=== PATIENT | female | born 1980 | race Caucasian/White ===

== ENCOUNTER 2017-03-22 07:50 | Inpatient (IN) ==
[2017-03-22] MEDS ORDERED: CITRIC ACID/SODIUM CITRATE 30ml PO ONE (08:11)
[2017-03-22] MEDS ORDERED: CEFAZOLIN PREMIX (MC ONLY) 2 GM/50 ML BAG IV ONE (08:11)
[2017-03-22] MEDS ORDERED: FAMOTIDINE PB 20 MG/50 ML BAG IV ONE (08:11)
[2017-03-22] MEDS: LR 1,000 ML IV SCH ×4 (08:44→11:24)
[2017-03-22] MEDS: NOZIN NASAL SWAB NAS SCH ×2 (08:46→16:52)
--- NOTE | 2017-03-22 09:19 | Anesthesia Preoperative Report ---
Anesthesia Preoperative Record - Date and Time Date: 03/22/17 Preoperative Diagnosis: , water broke Proposed Procedure: emergency csection NPO Since Date: 03/21/17 NPO Since Time: 23:00 Allergies/Adverse Reactions: Allergies Allergy/AdvReac Type Severity Reaction Status Date / Time No Known Allergies Allergy Verified 03/22/17 08:10 - Vital Signs Vital Signs: Temperature 97.6 F 03/22/17 08:55 Pulse Rate 102 H 03/22/17 08:55 Respiratory Rate 20 03/22/17 08:55 Blood Pressure 114/74 03/22/17 08:55 Pulse Oximetry 99 03/22/17 08:55 Height and Weight: Height 1.65 m Weight 82.1 kg - Medications Inpatient Medications: Current Medications Lactated Ringer's (Lactated Ringers) 1,000 mls @ 999 mls/hr IV .Q1H1M [facility] Last Admin: 03/22/17 08:44 Dose: 999 mls/hr Isopropyl Alcohol (Nozin Nasal Swab) 1 each RIO 0600,1400,2200 [facility] Last Admin: 03/22/17 08:46 Dose: 1 each Home Medications: Home Medications Medication Instructions Recorded Confirmed Type Docosahexanoic Acid [ Dha] 1 cap PO DAILY #0 cap 01/08/15 History Miralax 03/15/17 History Tylenol 03/15/17 History - Medical History Neuro/Musculoskeletal: Reports: Depression, Seizures (zero in 8 yrs, may have been anxiety attacks ) Other History: Reports: Now - Surgical History Reproductive Surgery/Treatment: DENIES: Section Anesthesia Reactions: None Hx Family Anesthesia Reaction: No - Social History Smoking Status: Never smoker Substance Use Type: does not use Alcohol Intake Frequency: does not drink - Pertinent Findings Laboratory: CBC and BMP 03/22/17 08:35 - Physical Exam Respiratory Exam: Present: lungs clear, bilateral breath sounds equal Cardiovascular Exam: Present: regular rate and rhythm, no murmur - Airway Assessment Mallampati Score: III TMD: 3 Fingerbreadths Neck Extension: good Overall Assessment: may be difficult intubation - ASA ASA Score: 2, E - Discussion Discussion: Discussed risks/options/alternatives of anesthesia and questions answered. Patient consents. Nursing pain assessment noted. Attestation Statement: Prior to the delivery of any anesthetic medication, I examined the patient, developed the plan, obtained the patient's consent and discussed the risk and benefits of the procedure with the patient/guardian.
[2017-03-22] MEDS ORDERED: MORPHINE SULFATE PF 5mg/10ml INJ (Duramorph) ONE (09:23)
[2017-03-22] MEDS ORDERED: FentaNYL 100 MCG/2 ML INJECTION ONE (09:23)
[2017-03-22] MEDS ORDERED: EPHEDRINE 50mg/ml INJECTION ONE ×2 (09:24→09:25)
[2017-03-22] MEDS ORDERED: ONDANSETRON 4 MG/2 ML INJECTION ONE (10:11)
[2017-03-22] MEDS: OXYTOCIN BOLUS BAG 30 UNIT/500 ML ML IV SCH ×2 (10:22→16:51)
[2017-03-22] MEDS ORDERED: ONDANSETRON 4 MG/2 ML INJECTION IVP PRN (10:28)
[2017-03-22] MEDS ORDERED: NALBUPHINE 10 MG/ML INJECTION IVP PRN (10:28)
[2017-03-22] MEDS ORDERED: METOCLOPRAMIDE 10mg/2ml INJECTION IVP PRN (10:28)
[2017-03-22] MEDS ORDERED: NALOXONE 2 MG/2 ML INJECTION PFS IVP PRN (10:28)
[2017-03-22] MEDS ORDERED: SIMETHICONE 80 MG CHEWABLE TABLET PO PRN (10:56)
[2017-03-22] MEDS ORDERED: ACETAMINOPHEN 500 MG TABLET PO PRN (10:56)
[2017-03-22] MEDS ORDERED: RHOPHYLAC - PHARMACY CONSULT MC ONE (10:56)
[2017-03-22] MEDS ORDERED: HYDROCORTISONE 2.5% CREAM 30gm RECTALLY PRN (10:56)
[2017-03-22] MEDS ORDERED: CALCIUM CARBONATE Chewable 500mg TABLET PO PRN (10:56)
[2017-03-22] MEDS ORDERED: OXYTOCIN DRIP 30 UNIT/500 ML ML IV SCH (11:00)
--- NOTE | 2017-03-22 11:03 | Operative Note ---
Operative Note - Date of Operation Date of Operation: 03/22/17 - General : 2 Para: 1 Estimated or Known Gestational Age (weeks): 37 Estimated or Known Gestational Age (days): 6 - Preoperative Diagnosis Other (h/o 4th degree laceration, SROM, desires primary c/s. ) - Postoperative Diagnosis same as preoperative - Procedure Primary, Low-transverse - Surgeon Surgeon: Dotty Washburn MD - Electronics Parts Sales Representative OB [employer] Sales Representative: Silvia Webb MD - Anesthesia Anesthesia Provider: Bar Fallon CRNA Anesthesia Type: Spinal - Complications Complications: None - Estimated Blood Loss Estimated Blood Loss:: 800 - Findings Findings: viable female, clear fluids, normal uterus, normal adenexa - APGARS : 9,9 - Weight Childress Weight (grams): 3452 - Name Childress Name: Kendal - Description of Procedure Description of Procedure: The patient was taken to the operating room where anesthesia was obtained . She was placed in the dorsal supine position with a leftward tilt. A Wren catheter was placed . She was prepared and draped in the normal sterile fashion. A Pfannenstiel incision was made through her previous incision and carried down to the fascia. The fascia was incised in the midline with the scalpel and then extended laterally with the Pringle scissors. The fascia was elevated, and the underlying rectus muscles were dissected off. The peritoneum was entered bluntly . This was extended superiorly and inferiorly with good visualization of the bladder. The bladder blade was inserted. A bladder flap was created sharply. The lower uterine segment was incised in a transverse fashion [id number] with the scalpel and bluntly extended. The membranes were ruptured. The s head was delivered atraumatically. The nose and mouth were suctioned. The cord was clamped and cut. The was handed to the waiting resuscitation team . The placenta delivered spontaneously. The uterus was exteriorized and cleared of all clots and debris. The uterus was closed with running, locked 0- monocryl. The right half of the incision was imbricated for hemostasis. Then hemostasis was obtained on the serosal edges with cautery. The uterus was returned to the abdomen. The gutters were cleared of all clots and debris. The uterine incision was inspected one final time and still noted to be hemostatic. The peritoneum was closed with running 2-0 vicryl. Hemostasis was obtained in the rectus muscles with the cautery. The fascia was closed with running 0-vicryl. Hemostasis was obtained in the subcutaneous tissue with the cautery. The skin was closed with 4-0 vicryl in a subcuticular manner. Steri- strips were placed. Sponge, sharp, and instrument counts were correct. The patient tolerated the procedure well and was taken to the recovery room in good condition.
[2017-03-22] MEDS: D5LR 1,000 ML IV SCH ×2 (11:25→23:49)
[2017-03-22] MEDS: HYDROCODONE/APAP 5mg/325mg TABLET PO PRN ×3 (12:59→20:47)
[2017-03-22] MEDS: IBUPROFEN 800 MG TABLET PO PRN ×2 (13:00→20:47)
[2017-03-22] MEDS: SIMETHICONE 80 MG CHEWABLE TABLET PO SCH ×2 (16:52→23:49)
--- NOTE | 2017-03-22 18:09 | Anesthesia Postoperative Note ---
- Date and Time Date: 03/22/17 Time: 18:09 - Status Patient Participated in Evaluation: Patient Participated in Person Vital Signs: Temperature 97.6 F 03/22/17 08:55 Pulse Rate 77 03/22/17 16:00 Respiratory Rate 16 03/22/17 16:00 Blood Pressure 97/60 03/22/17 16:00 Pulse Oximetry 99 03/22/17 16:00 Respiratory Function: Airway Patent Cardiovascular Function: Regular Pulse EKG: Sinus Rhythm Mental Status: Alert and Oriented Pain Intensity: 2 Hydration: Taking PO Fluids Complications During Recover: None Apparent - Follow-Up Instructions Instructions: Per Surgeon
[2017-03-23] MEDS: HYDROCODONE/APAP 5mg/325mg TABLET PO PRN ×2 (01:01→05:23)
[2017-03-23] MEDS: IBUPROFEN 800 MG TABLET PO PRN ×3 (05:23→23:13)
--- NOTE | 2017-03-23 07:44 | OB/GYN Progress Note ---
OB-PP Progress Note - General PPD1 Maternal Group B Strep: Negative Maternal blood type: O- Maternal Rubella Status: Immune General: Baby B positive. - Subjective Date: 03/23/17 Lochia: Minimal Pain: controlled Voiding: boggs still in place Subjective Comments: She would like to switch to Percocet. She had it after her first delivery and liked it better. - Objective Vital Signs: Last Vital Signs Temp 98.1 F 03/23/17 07:00 Pulse 75 03/23/17 07:00 Resp 18 03/23/17 07:00 BP 96/56 03/23/17 07:00 Pulse Ox 97 03/23/17 07:00 Urine Output: good General: alert and oriented Abdomen: fundus firm, non-tender, soft, non-distended Incision: normal, clean, no erythema, dry, intact Extremities: non-tender Laboratory: Laboratory Results - last 24 hr 03/22/17 03/22/17 03/22/17 08:31 08:35 08:35 WBC 11.7 H RBC 3.49 L Hgb 11.3 L Hct 34.2 L MCV 98.0 MCH 32.4 MCHC 33.0 RDW Std Deviation 49.1 Plt Count 161 MPV 10.6 Immature Gran % (Auto) 0.6 H Neut % (Auto) 77.9 H Lymph % (Auto) 13.3 L Swift % (Auto) 7.7 Eos % (Auto) 0.4 Baso % (Auto) 0.1 Neut # (Auto) 9.1 H Lymph # (Auto) 1.6 Swift # (Auto) 0.9 H Eos # (Auto) 0.1 Baso # (Auto) 0.0 Abs Immat Gran (auto) 0.07 H Hgb /Adult Ratio Blood Type O Negative Antibody Screen Positive A* Antibody Identification Immune D RhIG Candidate? Is a candidate 03/22/17 03/22/17 15:43 15:43 WBC 17.2 H D RBC 3.29 L Hgb 10.6 L Hct 32.5 L MCV 98.8 MCH 32.2 MCHC 32.6 RDW Std Deviation 49.3 Plt Count 151 MPV 10.3 Immature Gran % (Auto) Neut % (Auto) Lymph % (Auto) Swift % (Auto) Eos % (Auto) Baso % (Auto) Neut # (Auto) Lymph # (Auto) Swift # (Auto) Eos # (Auto) Baso # (Auto) Abs Immat Gran (auto) Hgb /Adult Ratio 0.0010 Blood Type Antibody Screen Antibody Identification RhIG Candidate? - Assessment Assessment: Primary C/S - Plan Plan: routine care, rhophylac
[2017-03-23] MEDS: SIMETHICONE 80 MG CHEWABLE TABLET PO SCH ×5 (07:52→23:13)
[2017-03-23] MEDS: DOCUSATE CALCIUM 240 MG CAPSULE PO SCH ×2 (07:52→10:08)
[2017-03-23] MEDS: Oxycodone/Acetaminophen 5/325 1 TAB PO PRN ×4 (09:19→23:13)
[2017-03-23] MEDS ORDERED: RHO(D) IMMUNE GLOBULIN 300 MCG/2 ML INJECTION IVP ONE (10:00)
[2017-03-23] MEDS: NOZIN NASAL SWAB NAS SCH ×4 (11:31→23:21)
[2017-03-23] MEDS ORDERED: PSEUDOEPHEDRINE 30 MG TABLET PO PRN (14:26)
[2017-03-23] MEDS ORDERED: PSEUDOEPHEDRINE 30 MG TABLET PO SCH (15:00)
[2017-03-23] MEDS: DiphenhydrAMINE 25 MG CAPSULE PO PRN ×2 (16:41→23:13)
[2017-03-24] MEDS: Oxycodone/Acetaminophen 5/325 1 TAB PO PRN ×5 (03:46→19:54)
[2017-03-24] MEDS: IBUPROFEN 800 MG TABLET PO PRN ×2 (07:47→15:48)
[2017-03-24] MEDS ORDERED: AZITHROMYCIN 250 MG TABLET PO ONE (08:11)
--- NOTE | 2017-03-24 08:26 | OB/GYN Progress Note ---
OB-PP Progress Note - General POD:: POD2 Maternal Group B Strep: Negative Maternal blood type: O- Maternal Rubella Status: Immune - Subjective Date: 03/24/17 Lochia: Moderate Pain: controlled Voiding: voiding Nausea or Vomiting Present: No - Objective Vital Signs: Last Vital Signs Temp 98.4 F 03/24/17 03:40 Pulse 88 03/24/17 07:00 Resp 18 03/24/17 07:00 BP 112/74 03/24/17 07:00 Pulse Ox 97 03/24/17 07:00 Urine Output: good General: alert and oriented Abdomen: fundus firm Incision: clean, no erythema, intact Extremities: non-tender - Assessment Assessment: Primary C/S - Plan Plan: routine care (Patient shaking. Feels like she has a cold. Nasal congestion. Ongoing for past two weeks. Zpack started. Baby not going home today related to weight loss and borderline bili. Plan for dismissal tomorrow. Enc. patient to walk several times in the [place] today. in the room. Temp 98.1 orally)
[2017-03-24] MEDS: NOZIN NASAL SWAB NAS SCH ×3 (09:51→22:43)
[2017-03-24] MEDS: SIMETHICONE 80 MG CHEWABLE TABLET PO SCH ×4 (09:51→22:39)
[2017-03-24] MEDS: DOCUSATE CALCIUM 240 MG CAPSULE PO SCH (09:51)
[2017-03-24 17:05] VITALS: O2SAT 100
[2017-03-25] MEDS: Oxycodone/Acetaminophen 5/325 1 TAB PO PRN ×3 (00:20→08:54)
[2017-03-25] MEDS: IBUPROFEN 800 MG TABLET PO PRN ×2 (00:20→08:54)
[2017-03-25 08:14] VITALS: BP 99/63; PULSE 83; RESP 16; TEMP 98.2
[2017-03-25] MEDS: DOCUSATE CALCIUM 240 MG CAPSULE PO SCH (08:55)
[2017-03-25] MEDS: NOZIN NASAL SWAB NAS SCH (08:56)
[2017-03-25] MEDS ORDERED: AZITHROMYCIN 250 MG TABLET PO SCH (09:00)
--- NOTE | 2017-03-25 11:24 | OB/GYN Progress Note ---
OB-PP Progress Note - General PPD3 Maternal Group B Strep: Negative Maternal blood type: O- Maternal Rubella Status: Immune - Subjective Date: 03/25/17 Lochia: Minimal Pain: controlled Voiding: voiding - Objective Vital Signs: Last Vital Signs Temp 98.2 F 03/25/17 08:08 Pulse 83 03/25/17 08:08 Resp 16 03/25/17 08:08 BP 99/63 03/25/17 08:08 Pulse Ox 100 03/24/17 15:45 General: alert and oriented Abdomen: fundus firm, non-tender, soft, non-distended Incision: normal, clean, no erythema, dry, intact Incision: SMall ecchymosis. Extremities: non-tender - Assessment Assessment: Primary C/S - Plan Plan: routine care, discharge home, continue PNV
== END 2017-03-25 12:10 | disposition home or self-care (01) | DRG 766 ==
LOC: OBOBS 07:50 → MC 07:51
PROVIDERS: ADMIT Obstetrics & Gynecology; ATTEND Obstetrics & Gynecology